=== PATIENT | female | born 1975 | race Caucasian/White ===

== ENCOUNTER 2023-06-20 16:01 | Observation (INO) | payer SELFPAY ==
[2023-06-20 16:13] VITALS: BP 132/84; PULSE 99; RESP 14; TEMP 36.7; O2SAT 99; BMI 37.2
--- NOTE | 2023-06-20 17:45 | CTR_ITS ---
PROCEDURE INFORMATION: Exam: CT Abdomen And Pelvis Without Contrast Exam date and time: 06/20/2023 6:34 PM Age: 47 years old Clinical indication: Abdominal pain; Flank; Right; Additional info: Right flank pain TECHNIQUE: Imaging protocol: Computed tomography of the abdomen and pelvis without contrast. Axial, coronal and sagittal reformatted images were created and reviewed. Radiation optimization: All CT scans at this facility use at least one of these dose optimization techniques: automated exposure control; mA and/or kV adjustment per patient size (includes targeted exams where dose is matched to clinical indication); or iterative reconstruction. COMPARISON: No relevant prior studies available. RADIATION DOSE METRICS: Total DLP (mGy-cm): 889 FINDINGS: Lungs: Linear stranding and groundglass at the lung bases, likely due to atelectasis and/or scarring. Diaphragm: Small hiatal hernia. Elevated right hemidiaphragm. Liver: Mild hepatomegaly. Coarse calcified granuloma in the right hepatic lobe. Gallbladder and bile ducts: No radiodense gallstones. No biliary ductal dilatation. Pancreas: Unremarkable. Spleen: Unremarkable. Adrenal glands: Normal. No mass. Kidneys and ureters: Nonobstructing left renal calculi. No hydronephrosis. Stomach and bowel: Colonic diverticulosis without evidence of diverticulitis. No obstruction. No bowel wall thickening. No pneumatosis. Appendix: Dilated, thickwalled appendix with moderate periappendiceal inflammatory change. Intraperitoneal space: Trace nonspecific free pelvic fluid, likely physiologic and/or reactive. No organized fluid collection. No free air. Vasculature: Mild atherosclerotic disease. No aneurysm. Lymph nodes: Small mesenteric lymph nodes, nonspecific in appearance. No pathologically enlarged lymph nodes. Urinary bladder: Unremarkable as visualized. Reproductive: Dominant right ovarian follicle. Bones/joints: No acute osseous abnormality. Osteopenia. Degenerative changes. Soft tissues: Unremarkable. CT/CT kidney stone [id number] IMPRESSION: 1. Acute appendicitis, as described above. Early perforation cannot be excluded. No abscess, obstruction or free air. 2. Additional findings, as above.
--- NOTE | 2023-06-20 17:47 | W.ED.FEMALGU ---
HPI - Female Genitourinary General: Chief complaint: Urogenital-Female Stated complaint: ABD/ leg pain Time Seen by Provider: 06/20/23 17:22 Source: patient Mode of arrival: ambulatory Limitations: no limitations History of Present Illness: 47yo female presents with flank pain that has been ongoing for the past 4 days, but worsened in the past 2 days. Patient states her pain initially started around her known hernia area in the abdomen, then moved to the flank area. States that it is worse on the right side. Patient reports she has had a history of kidney stones. Patient has been to her doctor twice in the past 2 days for this pain and was sent to the emergency department today for CT scan. Patient states that she did have an x-ray completed at her doctor's office and they saw something on the right kidney, but could not tell if it was a stone or not. Patient reports that she has had nausea, but is currently taking promethazine for it. Patient denies fever, vomiting, dysuria, difficulty voiding, any other concern at this time. Associated symptoms: Reports nausea Review of Systems Const: Denies: fever(s) Card: Denies: chest pain Resp: Denies: dyspnea GI: Reports: nausea; Denies: vomiting : Reports: flank pain (right > left) Physical Exam Const: COMMON NORMALS: no acute distress, patient oriented x3 and alert GENERAL APPEARANCE: cooperative ORIENTATION/CONSCIOUSNESS: Yes awake HENMT: COMMON NORMALS: normocephalic, external ears normal and Normal external nose present HEAD & SCALP: normocephalic NOSE: Normal external nose present EXTERNAL EAR: Yes external ears normal Neck/C-Spine: COMMON NORMALS: full ROM Resp: COMMON NORMALS: normal respiratory effort and clear to auscultation bilaterally EFFORT & INSPECTION: Yes able to speak in complete sentences AUSCULTATION: clear to auscultation bilaterally Cardio: COMMON NORMALS: regular rate and regular rhythm RATE: regular rate RHYTHM: regular rhythm GI: COMMON NORMALS: Soft to palpation PALPATION: Yes Soft to palpation : BLADDER/KIDNEY EXAM: Yes CVA tenderness (mild) Back/Pelvis: GENERAL BACK: Yes CVA tenderness (mild) CVA tenderness: right Extremity: NARRATIVE EXTREMITY EXAM: MAEW Neuro: COMMON NORMALS: patient oriented x3 SENSORIUM/ORIENTATION: Yes alert Psych: COMMON NORMALS: cooperative ATTITUDE: Yes calm Course ED course: 1906: Received call from radiologist about appendicitis with inflammation and possible early perforation. Reevaluation(s): Reevaluation #1: Discussed CT findings with patient. Advised that we would contact the surgeon and likely be admitted for surgery. Time: 19:10 Consultations: Consultation #1: Dr Stewart, Gen Surg. Discussed HPI and CT findings of appendicitis. Advised [id number] Zosyn as well as pain medications and admission for surgery. Time: 19:18 Vital Signs: Vital signs: Vital Signs Temperature 98.1 F 06/20/23 16:13 Pulse Rate 99 06/20/23 16:13 Respiratory Rate 14 06/20/23 16:13 Blood Pressure 132/84 06/20/23 16:13 Pulse Oximetry 99 06/20/23 16:13 Oxygen Delivery Me thod Room Air 06/20/23 16:13 MDM - Female Medical Decision Making 47yo female here from her primary care office for a CT scan to evaluate for possible kidney stone. Patient states that her symptoms started about 3 days ago but has worsened in the past 2 days. Patient did have an x-ray completed at her primary care office where they could not be sure if there was something on the right kidney are not. Patient has had a lot of nausea and is currently taking promethazine for it. Patient does have a history of kidney stones. She denies fever, chills, body aches, dysuria, difficulty passing urine, any other concern at this time. Patient is nontoxic in appearance. Vital signs are stable. White blood cell count noted to be elevated at 14.66. CMP with a glucose of 124, otherwise unremarkable. UA with 1+ protein trace leukocytes, but contaminated with epithelial cells. CT abdomen pelvis does indicate acute appendicitis early perforation cannot be excluded. Discussed these findings with patient. Advised that she would need to be admitted to the hospital for appendectomy. Patient does state understanding. Consulted Dr. Stewart, general surgery. He recommended Zosyn [id number] with pain medications and he will take her to surgery. Patient is agreeable with plan of care and admission to the hospital. Differential Diagnosis Likely abdominal pain, acute appendicitis, calculus of kidney and constipation Medical Records I reviewed the patient's medical records. Lab Data I reviewed the patient's lab results. 06/20/23 18:04 06/20/23 18:04 Radiology Impressions Abdomen/Pelvis CT 06/20/23 17:45 IMPRESSION: 1. Acute appendicitis, as described above. Early perforation cannot be excluded. No abscess, obstruction or free air. 2. Additional findings, as above. ADDENDUM: 06/20/231909 ADDENDUM: THIS REPORT CONTAINS FINDINGS THAT MAY BE CRITICAL TO PATIENT CARE. The findings were verbally communicated via telephone conference with PRIYA MARIANO at 7:07 PM SHOE LAY OUT PLANNER on 06/20/2023. The findings were acknowledged and understood. Laboratory Results WBC 14.66 10^3/uL (3.29-11.43) H 06/20/23 18:04 RBC 4.80 10^6/uL (3.85-5.65) 06/20/23 18:04 Hgb 13.40 g/dL (11.27-16.99) 06/20/23 18:04 Hct 40.0 % (36-47) 06/20/23 18:04 MCV 83.3 fl (85-98) L 06/20/23 18:04 MCH 27.9 pg (27-33) 06/20/23 18:04 MCHC 33.5 g/dL (30-55) 06/20/23 18:04 RDW 14.2 % (12.1-15.1) 06/20/23 18:04 Plt Count 253 10^3/cmm (157-399) 06/20/23 18:04 MPV 10.6 fL (7.4-10.4) H 06/20/23 18:04 Neut % (Auto) 78.4 % 06/20/23 18:04 Lymph % (Auto) 14.4 % 06/20/23 18:04 [place] % (Auto) 5.2 % 06/20/23 18:04 Eos % (Auto) 1.1 % 06/20/23 18:04 Baso % (Auto) 0.4 % 06/20/23 18:04 Neut # (Auto) 11.49 10^3/uL (1.8-7.7) H 06/20/23 18:04 Lymph # (Auto) 2.1 10^3/uL (0.8-4.8) 06/20/23 18:04 [place] # (Auto) 0.8 10^3/uL (0.2-0.9) 06/20/23 18:04 Eos # (Auto) 0.2 10^3/uL (0.0-0.8) 06/20/23 18:04 Baso # (Auto) 0.1 10^3/uL (0.0-0.1) 06/20/23 18:04 Nucleated RBC % (auto) 0 % 06/20/23 18:04 Nucleated RBCs # 0.0 /100WBC 06/20/23 18:04 Sodium 140 mmol/L (136-145) 06/20/23 18:04 Potassium 3.5 mmol/L (3.5-5.1) 06/20/23 18:04 Chloride 102 mmol/L (98-107) 06/20/23 18:04 Carbon Dioxide 28 mmol/L (22-29) 06/20/23 18:04 Anion Gap 13.5 (5-19) 06/20/23 18:04 BUN 13 mg/dL (6-20) 06/20/23 18:04 Creatinine 0.7 mg/dL (0.5-0.9) 06/20/23 18:04 GFR Calculation 88.9 mL/min (90-130) L 06/20/23 18:04 Glucose 124 mg/dL (65-115) H 06/20/23 18:04 Calculated Osmolality 292 mOsm/kg (285-295) 06/20/23 18:04 Calcium 9.2 mg/dL (8.5-10.5) 06/20/23 18:04 Total Bilirubin 0.4 mg/dL (0.15-1.2) 06/20/23 18:04 AST 10 U/L (0-32) 06/20/23 18:04 ALT 12 U/L (0-33) 06/20/23 18:04 Alkaline Phosphatase 47 U/L (35-105) 06/20/23 18:04 Total Protein 6.9 g/dL (6.6-8.7) 06/20/23 18:04 Albumin 4.0 g/dL (3.5-5.2) 06/20/23 18:04 Globulin 2.9 g/dL (1.3-4.6) 06/20/23 18:04 Urine Color Dark yellow (Yellow) 06/20/23 18:04 Urine Appearance Sl cloudy (CLEAR) A 06/20/23 18:04 Urine pH 6.5 (5-7) 06/20/23 18:04 Ur Specific [place] 1.020 (1.005-1.030) 06/20/23 18:04 Urine Protein 1+ (Negative) H 06/20/23 18:04 Urine Glucose (UA) Norm (Normal) 06/20/23 18:04 Urine Ketones 1+ (Negative) H 06/20/23 18:04 Urine Blood 2+ (Negative) H 06/20/23 18:04 Urine Nitrate Negative (Negative) 06/20/23 18:04 Urine Bilirubin 1+ (Negative) H 06/20/23 18:04 Urine Urobilinogen 1 mg/dL (Negative) H 06/20/23 18:04 Ur Leukocyte Esterase Trace (Negative) H 06/20/23 18:04 Urine RBC 15-25 /hpf (0-2) H 06/20/23 18:04 Urine WBC 0-4 /hpf (0-5) H 06/20/23 18:04 Ur Squamous Epith Cells 15-25 /hpf (0-5) H 06/20/23 18:04 Calcium Oxalate Crystal 25-40 /hpf H 06/20/23 18:04 Amorphous Sediment Not Reportable 06/20/23 18:04 Urine Bacteria 2+ /hpf (NONE) H 06/20/23 18:04 Urine Mucus 3+ /hpf 06/20/23 18:04 All radiology interpretation(s) finalized by discharge Discharge Plan Discharge Condition: Stable Coding Level of Care Code ED Gum Rolling Machine Operator for Chacha Mariscal
[2023-06-20 18:16] LABS: Basophils # 0.1 10^3/uL (0.0-0.1); Basophils % 0.4 %; Eosinophils # 0.2 10^3/uL (0.0-0.8); Eosinophils % 1.1 %; Lymphocytes # 2.1 10^3/uL (0.8-4.8); Lymphocytes % 14.4 %; Mean Corpuscular HGB Conc 33.5 g/dL (30-55); Mean Corpuscular Hemoglobin 27.9 pg (27-33); Mean Corpuscular Volume 83.3 fl (85-98); Mean Platelet Volume 10.6 fL (7.4-10.4); Monocytes # 0.8 10^3/uL (0.2-0.9); Monocytes % 5.2 %; Neutrophils # 11.49 10^3/uL (1.8-7.7); Neutrophils % 78.4 %; Nucleated Red Blood Cells % 0 %; Platelet Count 253 10^3/cmm (157-399); Red Cell Distribution Width 14.2 % (12.1-15.1); White Blood Count 14.66 10^3/uL (3.29-11.43)
[2023-06-20 18:37] LABS: Alanine Aminotransferase 12 U/L (0-33); Alkaline Phosphatase 47 U/L (35-105); Anion Gap 13.5 (5-19); Aspartate Amino Transferase 10 U/L (0-32); Blood Urea Nitrogen 13 mg/dL (6-20); Calcium 9.2 mg/dL (8.5-10.5); Carbon Dioxide 28 mmol/L (22-29); Chloride 102 mmol/L (98-107); Globulin 2.9 g/dL (1.3-4.6); Glomerular Filtration Rate 88.9 mL/min (90-130); Glucose 124 mg/dL (65-115); Osmolality Calculated 292 mOsm/kg (285-295); Potassium 3.5 mmol/L (3.5-5.1); Sodium 140 mmol/L (136-145); Total Bilirubin 0.4 mg/dL (0.15-1.2); Total Protein 6.9 g/dL (6.6-8.7)
[2023-06-20 19:10] LABS: Add Urine Microscopic? YES; Bilirubin Urine 1+ (Negative); Blood Urine 2+ (Negative); Glucose Urine UA Norm (Normal); Ketones Urine 1+ (Negative); Leukocyte Esterase Urine Trace (Negative); Nitrate Urine Negative (Negative); Protein Urine 1+ (Negative); Urine Color Dark Yellow (Yellow); Urobilinogen Urine 1 mg/dL (Negative); pH Urine 6.5 (5-7)
[2023-06-20 19:11] LABS: Bacteria Urine 2+ /hpf; Calcium Oxalate Crystals Urine 25-40 /hpf; Mucus Urine 3+ /hpf; RBC Urine 15-25 /hpf (0-2); Squamous Epithelial Cell Urine 15-25 /hpf (0-5); WBC Urine 0-4 /hpf (0-5)
[2023-06-20 19:12] LABS: Add Urine Culture? No
--- NOTE | 2023-06-20 20:31 | PC.NURSE ---
video games storywriter provided report and handed off care to Polly MARTIN at 1900
[2023-06-20] MEDS: morphine 4 mg/mL SDV 1 mL IVP (20:46)
[2023-06-20] MEDS: piperacillin-tazobactam 3.375 GM in sodium chloride 0.9% (plus) 50 ML IV (20:46)
[2023-06-20] MEDS: ondansetron 2 mg/ML SDV 2 mL 4 MG IVP (20:46)
[2023-06-20] MEDS: sodium chloride 0.9% 1,000 ML 100 ML IV (20:46)
[2023-06-20 22:02] VITALS: BMI 27.6
[2023-06-20 22:08] VITALS: BP 130/68; PULSE 98; RESP 16; TEMP 37; O2SAT 99
[2023-06-20 23:59] VITALS: BP 121/79; PULSE 76; RESP 17; TEMP 36.8; O2SAT 97
[2023-06-21] VITALS (28 sets, daily range): BP systolic 100–144; BP diastolic 65–84; PULSE 56–77; RESP 11–25; TEMP 36.1–36.8; O2SAT 92–99
[2023-06-21] MEDS: ondansetron 2 mg/ML SDV 2 mL 4 MG IVP ×3 (01:45→14:11)
[2023-06-21] MEDS: HYDROmorphone 1 mg/mL INJ 1 mL IVP ×6 (01:50→22:30)
[2023-06-21] MEDS: sodium chloride 0.9% 1,000 ML 100 ML IV ×3 (04:59→22:30)
[2023-06-21] MEDS: piperacillin-tazobactam 3.375 GM in sodium chloride 0.9% (plus) 50 ML IV ×3 (04:59→22:29)
--- NOTE | 2023-06-21 10:28 | P.ANESASSM_ITS ---
Pre-Anesthetic Assessment Height/Weight: Height 1.6 m Weight 80.286 kg Temp Pulse Resp BP Pulse Ox O2 Del Method 97.5 F L 65 16 124/84 96 Room Air 06/21/23 07:48 06/21/23 07:48 06/21/23 08:20 06/21/23 07:48 06/21/23 07:48 06/21/23 07:48 Operation Date: 06/21/23 11:00 Proposed Procedures p Laparoscopic Appendectomy(Not Applicable) - Filipe Stewart, DO Was Beta Liss taken within 24 hours: N/A Was Clonidine taken within 24 hours: N/A Exam alert and oriented x 3 Airway Submandibular: within normal limits Cervical ROM: within normal limits Mallampati: Class II Comments: Comments: Broken teeth upper molars History/ROS No significant history except as noted and No significant complaints CV/HEM Hypertension GI Gastroesophageal Reflux Disease Well controlled GERD; PPI prn only Metabolic Morbid Obesity Anesthetic Plan ASA status: 2 Anesthesia: General Risk of > 500 ml blood loss (7ml/kg in children): No Medications/Allergies Home Medications Medication Instructions Recorded Confirmed Last Taken Type hydrochlorothiazide 25 mg tablet 25 mg PO DAILY 06/21/23 06/21/23 06/19/23 History Allergies Allergy/AdvReac Type Severity Reaction Status Date / Time No Known Allergies Allergy Verified 06/20/23 16:12 Current Medications Generic Name Dose Route Start Last Admin Trade Name Freq PRN Reason Stop Dose Admin Hydromorphone HCl 1 mg 06/20/23 23:57 06/21/23 08:20 Hydromorphone 1 Mg/Ml Inj 1 Ml IVP 1 mg Q3H PRN Administration PAIN Sodium Chloride 1,000 mls @ 100 mls/hr 06/20/23 19:30 06/21/23 04:59 Sodium Chloride 0.9% IV 100 mls/hr .Q10H SAILAJA Administration Piperacillin Sod/Tazobactam 50 mls @ 12.5 mls/hr 06/21/23 05:00 06/21/23 09:04 Sod 3.375 gm/ Sodium Chloride IV Infused Q8H SAILAJA Infusion Protocol Ondansetron HCl 4 mg 06/20/23 23:58 06/21/23 08:20 Ondansetron 2 Mg/Ml Sdv 2 Ml IVP 4 mg Q4H PRN Administration NAUSEA AND VOMITING Data Anesthesia 06/20/23 18:04 06/20/23 18:04 Short CBC 06/20/23 Range/Units 18:04 WBC 14.66 H (3.29-11.43) 10^3/uL Hgb 13.40 (11.27-16.99) g/dL Hct 40.0 (36-47) % MCV 83.3 L (85-98) fl Plt Count 253 (157-399) 10^3/cmm Neut % (Auto) 78.4 % Neut # (Auto) 11.49 H (1.8-7.7) 10^3/uL BMP 06/20/23 18:04 Sodium 140 Potassium 3.5 Chloride 102 Carbon Dioxide 28 BUN 13 Creatinine 0.7 Glucose 124 H Calcium 9.2 Liver Function 06/20/23 Range/Units 18:04 Total Bilirubin 0.4 (0.15-1.2) mg/dL AST 10 (0-32) U/L ALT 12 (0-33) U/L Alkaline Phosphatase 47 (35-105) U/L Albumin 4.0 (3.5-5.2) g/dL Urine 06/20/23 Range/Units 18:04 Urine Color Dark yellow (Yellow) Urine Appearance Sl cloudy A (CLEAR) Urine pH 6.5 (5-7) Ur Specific [place] 1.020 (1.005-1.030) Urine Protein 1+ H (Negative) Urine Glucose (UA) Norm (Normal) Urine Ketones 1+ H (Negative) Urine Nitrate Negative (Negative) Urine Bilirubin 1+ H (Negative) Ur Leukocyte Esterase Trace H (Negative) Urine RBC 15-25 H (0-2) /hpf Urine WBC 0-4 H (0-5) /hpf Cardiac Studies: 2 No Data to Display
--- NOTE | 2023-06-21 10:34 | PC.CHAP ---
Pastoral Care Encounter/Spiritual Assessment Type of Contact [] Declined carbon coating machine operator visit [] Patient/Family/Request visit [] Outpatient visit [] Follow-up visit [] Physician referral [] Code/Alert [X] Routine visit [] Staff referral [] Actively dying [] Patient sleeping [X] Family support [] [] Out of room [] Palliative care [] [] Receiving care in room [] Pre-surgical visit [] Trauma [] Long length of stay [] ICU visit [] Other: Relational/Emotional Strength [X] Patient feels connected with others/family/visitors/staff [] Distress [] Loneliness/isolation [] Abandonment Spirituality of Patient [X] Person of Jo Ann [X] Attends Religion of their [place] [X] Believes in Prayer [X] Reads Bible or Sabianist materials [] There are Spiritual issues to be addressed Tactical/Mobile Watch Officer Interventions [X] Prayer [X] Active listening [] Non-anxious presence [] Spiritual/emotional support [] Crisis/trauma care [] Spiritual counseling [] Bereavement support [] Provided bereavement packet [] Provided Bible/devotional materials [] Provided toy/stuffed animal, coloring book to patient or family member [] Provided Communion [] Anointing/[place] [] Salvation [] Completed spiritual assessment [] Other: Impact on Illness or Injury [] Angry [] Fearful [] Anxious [] Often cries [] Exhaustion [] Unable to work [] Unable to attend lutheran [] Unable to walk/stand [] Unable to read [] Unable to drive [] Unable to eat/drink [] Unable to sleep [] Unable to be with family [] Patient intubated [] Other: Summary Time spent with patient 20 MIN
[2023-06-21] MEDS: sodium chloride 0.9% 1,000 ML 30 ML IV (10:57)
--- NOTE | 2023-06-21 11:33 | P.HP_ITS ---
Providers/Chief Complaint 2 Admitting Physician: Filipe Stewart DO Chief Complaint: ABD/ leg pain History of Present Illness Venus Hahn is a 47 year old female presents to the hospital with a 3-day history of abdominal pain. She reports that her abdominal pain is mostly periumbilical but also in the right lower quadrant. She has had chills at home but no recorded fever. She denies any nausea, vomiting, diarrhea, constipation, hematochezia and/or melena. Her pain is sharp and constant. The pain does not radiate. Palpation makes pain worse. Nothing makes pain better. CT the abdomen pelvis shows acute appendicitis. Review of Systems 2 General: Reports: 10 or more systems reviewed and unremarkable except in HPI and below Medications/Allergies Home Medications Medication Instructions Recorded Confirmed Last Taken Type hydrochlorothiazide 25 mg tablet 25 mg PO DAILY 06/21/23 06/21/23 06/19/23 History Allergies Allergy/AdvReac Type Severity Reaction Status Date / Time No Known Allergies Allergy Verified 06/20/23 16:12 Vitals/I&O/Wt Last Vital Signs Temp 97.8 F 06/21/23 10:31 Pulse 67 06/21/23 10:31 Resp 18 06/21/23 10:31 BP 120/72 06/21/23 10:31 Pulse Ox 95 06/21/23 10:31 O2 Del Method Room Air 06/21/23 10:31 06/20/23 06/21/23 06/21/23 22:59 06:59 14:59 Intake Total 871.667 / 871.667 50 / 50 Balance 871.667 / 871.667 50 / 50 Weight last 48 hrs Weight 177 lb Weight 155 lb 14.4 oz Weight 210 lb Physical Exam 2 Narrative: General : Patient is well developed , no acute distress, oriented x3 Head : Normal cephalic, a-traumatic. Ears : Pinnae and external canal are normal. Hearing is normal. Eyes : PERRLA, Sclera and injection are normal. No conjunctival discharge. Nose : Mucous membranes are without erythema. Throat : buccal mucosa is normal, gums are without significant recession or hypertrophy. Lungs : Equal chest rise bilaterally, no use of accessory muscles, trachea is midline. Cor : Rate and rhythm are normal. Abdomen : Soft, ND, tender to palpation right lower quadrant, reducible umbilical hernia, no guarding rebound or masses, negative Rovsing's Extremities : No edema, no cyanosis or clubbing, dorsalis pedis pulses are present bilaterally, non-tender to palpation of calves. Upper extremities are normal bilaterally. Back : non-tender to palpation, no CVA tenderness. Neuro : CN II - XII intact, Upper and lower extremities have equal and full strength Data 06/20/23 18:04 06/20/23 18:04 A&P Assessment and plan (1) Acute appendicitis: (2) Umbilical hernia: Plan Laparoscopic Appendectomy The risks and benefits of the procedure, including but not limited to, bleeding, infection, scar, numbness, pain, damage to surrounding structures, conversion to an open procedure, were explained to the patient. He is understanding of the risks and wishes to proceed. Attestations 2 Medical Necessity Statement*: Patient requires at least 1 night in the hospital for IV antibiotics following laparoscopic appendectomy Coding Level of Care Code 37084 Diagnoses Acute appendicitis K35.80 Umbilical hernia K42.9
[2023-06-21] MEDS: lidocaine-epi 2% 20 mL INJ INJECTION (12:04)
--- NOTE | 2023-06-21 12:37 | PM.OP ---
Operative Report Date of procedure: June 21, 2023 Pre-op diagnosis: Acute appendicitis Umbilical hernia Post-op diagnosis: same Procedure done: Laparoscopic appendectomy Implants: None Specimens removed/disposition: Appendix Surgeon: Filipe Stewart DO Anesthesia: General Estimated blood loss (mL): 5 Complications: None apparent Brief History: This a very pleasant 47-year-old female presented in the hospital with 3-day history abdominal pain. She was diagnosed with acute appendicitis. Laparoscopic appendectomy was indicated. The risk and benefits were explained and documented. Procedure: Patient was wheeled into the operative room and placed on the OR table in a supine position. Abdomen was inspected prepped and draped in usual sterile fashion. Time-out was performed and all present were in agreement. A 15 blade scalp was used to make a stab incision in the left upper quadrant and intra-abdominal insufflation was achieved using a Veress needle. Show large umbilical hernia that was difficult to entirely reduce. Due to this I could not go through the umbilicus. I put a 5 mm trocar through the left upper quadrant incision using [place]. After localizing the tissue incisions were made and a 12 millimeter trocar was placed infraumbilically as well as a 5mm in the right lower quadrant and a 5 mm in the left lower quadrant . The appendix was identified and was retrocecal and inflamed. There was no perforation.. I used the LigaSure to ligate the mesoappendix at the base. I then used 2 PDS endo-loops to snare the base of the appendix. I then used the Voyant to ligate the appendix distally. The appendix was removed from the abdomen using an Endo-Catch bag through the umbilical incision. I examined the abdomen and no further pathology was identified. Hemostasis was noted. I then closed the umbilical site with a Troy-Lidya and 0 Vicryl suture in a figure of 8 fashion. All ports removed. Skin was washed and dried. Incisions were closed with 4 O Vicryl in a subcuticular interrupted fashion. Skin glue was applied. Patient tolerated the procedure well.
[2023-06-21] MEDS: hydroCHLOROthiazide 25 mg Tablet PO (14:10)
--- NOTE | 2023-06-21 19:24 | ANE.PACU2 ---
Inpatient post-anesthesia follow up: Airway intact: Yes Vital signs: Temperature 98 F Pulse Rate 67 Respiratory Rate 16 Blood Pressure 111/75 Pulse Oximetry 96 Oxygen Delivery Me thod Room Air Oxygen Flow Rate 8 Fraction of Inspir ed Oxygen Hydration adequate: Yes Nausea and vomiting: No Pain level: 2 Mental status: Baseline
[2023-06-22] VITALS (7 sets, daily range): BP systolic 127–136; BP diastolic 72–74; PULSE 61–79; RESP 16–18; TEMP 36.4–36.8; O2SAT 94–96
[2023-06-22] MEDS: HYDROmorphone 1 mg/mL INJ 1 mL IVP ×3 (02:19→10:42)
[2023-06-22] MEDS: piperacillin-tazobactam 3.375 GM in sodium chloride 0.9% (plus) 50 ML IV (05:40)
[2023-06-22] MEDS: ondansetron 2 mg/ML SDV 2 mL 4 MG IVP (05:40)
--- NOTE | 2023-06-22 09:16 | P.DS_ITS ---
Discharge Providers Date of Admission: 06/20/23 19:23 Date of Discharge: June 22, 2023 Attending Provider at Admission: Filipe Stewart DO Attending Provider at Discharge: Filipe Stewart DO Diagnoses at Discharge Discharge Diagnosis (1) Acute appendicitis: Status: Acute (2) Umbilical hernia: Status: Acute Reason for Visit Reason for Visit: ABD/ leg pain Hospital Course Hospital Course This very pleasant 47-year-old female who presented to the hospital with abdominal pain. She was diagnosed with acute appendicitis. She underwent laparoscopic appendectomy. She did well postoperatively and was discharged home in good condition the next day. Notably, she had a fairly large umbilical hernia prior to surgery. Physical Exam Narrative: General : Patient is well developed , no acute distress, oriented x3 Head : Normal cephalic, a-traumatic. Ears : Pinnae and external canal are normal. Hearing is normal. Eyes : PERRLA, Sclera and injection are normal. No conjunctival discharge. Nose : Mucous membranes are without erythema. Throat : buccal mucosa is normal, gums are without significant recession or hypertrophy. Lungs : Equal chest rise bilaterally, no use of accessory muscles, trachea is midline. Cor : Rate and rhythm are normal. Abdomen : Soft, ND, appropriately tender, no g/r/m Extremities : No edema, no cyanosis or clubbing, dorsalis pedis pulses are present bilaterally, non-tender to palpation of calves. Upper extremities are normal bilaterally. Back : non-tender to palpation, no CVA tenderness. Neuro : CN II - XII intact, Upper and lower extremities have equal and full strength Discharge Data Studies Completed and Pending Completed Studies During Hospitalization Category Date Time Status CT abdomen renal stone [CT kidney stone 41330] Stat Cat Scan 06/20/23 17:45 Completed Pending at discharge Category Date Time Status Pathology: Surgical [PTH] Routine Pth 06/21/23 12:31 Received Radiology Impressions Abdomen/Pelvis CT 06/20/23 17:45 IMPRESSION: 1. Acute appendicitis, as described above. Early perforation cannot be excluded. No abscess, obstruction or free air. 2. Additional findings, as above. ADDENDUM: 06/20/231909 ADDENDUM: THIS REPORT CONTAINS FINDINGS THAT MAY BE CRITICAL TO PATIENT CARE. The findings were verbally communicated via telephone conference with PRIYA MARIANO at 7:07 PM [employer] on 06/20/2023. The findings were acknowledged and understood. Laboratory Results WBC 14.66 10^3/uL (3.29-11.43) H 06/20/23 18:04 RBC 4.80 10^6/uL (3.85-5.65) 06/20/23 18:04 Hgb 13.40 g/dL (11.27-16.99) 06/20/23 18:04 Hct 40.0 % (36-47) 06/20/23 18:04 MCV 83.3 fl (85-98) L 06/20/23 18:04 MCH 27.9 pg (27-33) 06/20/23 18:04 MCHC 33.5 g/dL (30-55) 06/20/23 18:04 RDW 14.2 % (12.1-15.1) 06/20/23 18:04 Plt Count 253 10^3/cmm (157-399) 06/20/23 18:04 MPV 10.6 fL (7.4-10.4) H 06/20/23 18:04 Neut % (Auto) 78.4 % 06/20/23 18:04 Lymph % (Auto) 14.4 % 06/20/23 18:04 [place] % (Auto) 5.2 % 06/20/23 18:04 Eos % (Auto) 1.1 % 06/20/23 18:04 Baso % (Auto) 0.4 % 06/20/23 18:04 Neut # (Auto) 11.49 10^3/uL (1.8-7.7) H 06/20/23 18:04 Lymph # (Auto) 2.1 10^3/uL (0.8-4.8) 06/20/23 18:04 [place] # (Auto) 0.8 10^3/uL (0.2-0.9) 06/20/23 18:04 Eos # (Auto) 0.2 10^3/uL (0.0-0.8) 06/20/23 18:04 Baso # (Auto) 0.1 10^3/uL (0.0-0.1) 06/20/23 18:04 Nucleated RBC % (auto) 0 % 06/20/23 18:04 Nucleated RBCs # 0.0 /100WBC 06/20/23 18:04 Sodium 140 mmol/L (136-145) 06/20/23 18:04 Potassium 3.5 mmol/L (3.5-5.1) 06/20/23 18:04 Chloride 102 mmol/L (98-107) 06/20/23 18:04 Carbon Dioxide 28 mmol/L (22-29) 06/20/23 18:04 Anion Gap 13.5 (5-19) 06/20/23 18:04 BUN 13 mg/dL (6-20) 06/20/23 18:04 Creatinine 0.7 mg/dL (0.5-0.9) 06/20/23 18:04 GFR Calculation 88.9 mL/min (90-130) L 06/20/23 18:04 Glucose 124 mg/dL (65-115) H 06/20/23 18:04 Calculated Osmolality 292 mOsm/kg (285-295) 06/20/23 18:04 Calcium 9.2 mg/dL (8.5-10.5) 06/20/23 18:04 Total Bilirubin 0.4 mg/dL (0.15-1.2) 06/20/23 18:04 AST 10 U/L (0-32) 06/20/23 18:04 ALT 12 U/L (0-33) 06/20/23 18:04 Alkaline Phosphatase 47 U/L (35-105) 06/20/23 18:04 Total Protein 6.9 g/dL (6.6-8.7) 06/20/23 18:04 Albumin 4.0 g/dL (3.5-5.2) 06/20/23 18:04 Globulin 2.9 g/dL (1.3-4.6) 06/20/23 18:04 Urine Color Dark yellow (Yellow) 06/20/23 18:04 Urine Appearance Sl cloudy (CLEAR) A 06/20/23 18:04 Urine pH 6.5 (5-7) 06/20/23 18:04 Ur Specific [place] 1.020 (1.005-1.030) 06/20/23 18:04 Urine Protein 1+ (Negative) H 06/20/23 18:04 Urine Glucose (UA) Norm (Normal) 06/20/23 18:04 Urine Ketones 1+ (Negative) H 06/20/23 18:04 Urine Blood 2+ (Negative) H 06/20/23 18:04 Urine Nitrate Negative (Negative) 06/20/23 18:04 Urine Bilirubin 1+ (Negative) H 06/20/23 18:04 Urine Urobilinogen 1 mg/dL (Negative) H 06/20/23 18:04 Ur Leukocyte Esterase Trace (Negative) H 06/20/23 18:04 Urine RBC 15-25 /hpf (0-2) H 06/20/23 18:04 Urine WBC 0-4 /hpf (0-5) H 06/20/23 18:04 Ur Squamous Epith Cells 15-25 /hpf (0-5) H 06/20/23 18:04 Calcium Oxalate Crystal 25-40 /hpf H 06/20/23 18:04 Amorphous Sediment Not Reportable 06/20/23 18:04 Urine Bacteria 2+ /hpf (NONE) H 06/20/23 18:04 Urine Mucus 3+ /hpf 06/20/23 18:04 Procedures Performed Laparoscopic appendectomy Vitals Last Vital Signs Temp 98.2 F 06/22/23 07:12 Pulse 61 06/22/23 07:12 Resp 16 06/22/23 07:12 BP 127/74 06/22/23 07:12 Pulse Ox 96 06/22/23 07:12 O2 Del Method Room Air 06/22/23 07:12 O2 Flow Rate 8 06/21/23 13:09 Discharge Plan Discharge Patient Disposition: Home Condition: Stable Prescriptions: New hydrocodone-acetaminophen 7.5-325 mg tablet 1 tab PO Q6H PRN (Reason: pain) Qty: 20 0RF Colace 100 mg capsule 100 mg PO BID Qty: 14 0RF fluconazole 150 mg tablet 150 mg PO DAILY Qty: 1 0RF Rx Instructions: administer on day 1 of therapy amoxicillin-pot clavulanate 875-125 mg tablet 1 tab PO BID Qty: 14 0RF Continued hydrochlorothiazide 25 mg tablet 25 mg PO DAILY Discharge Orders: Discharge Order (Routine); Ordered 06/22/23 Ordered By: Filipe Stewart Referrals: Filipe Stewart DO [Physician] - 2 weeks Discharge Diet: Advance as tolerated Discharge Activity: Resume usual activity Patient Instructions: Opioid Safety, Post Anesthesia Care Activity Restrictions/Additional Instructions: Do not soak incisions underwater for 2 weeks. Shower daily. Discharge Attestations Time Spent in Discharge Care*: less than 30 min Quality Metrics Clinical Quality Measures [ No reported AMI, CVA or VTE this stay] Coding Level of Care Code Acute Code for Chg Fwd Diagnoses Acute appendicitis K35.80 Umbilical hernia K42.9
[2023-06-22] MEDS: hydroCHLOROthiazide 25 mg Tablet PO (10:40)
[2023-06-22 12:09] LABS: Glucose Point of Care 126 mg/dL (70-110)
== END 2023-06-22 12:01 | disposition home or self-care (01) ==
LOC: ER 19:21 → MEDSURG 20:33
PROVIDERS: Admitting Provider Surgery; Emergency Provider Nurse Practitioner; Visit Provider Surgery
PROC: 0DTJ4ZZ Resection of Appendix, Percutaneous Endoscopic Approach (ICD-10-PCS; CPT 44970; principal; 2023-06-21 11:00)
DX: K35.80 Unspecified acute appendicitis (principal); K42.9 Umbilical hernia without obstruction or gangrene; I10 Essential (primary) hypertension; K21.9 Gastro-esophageal reflux disease without esophagitis; E66.01 Morbid (severe) obesity due to excess calories; Z68.32 Body mass index [BMI] 32.0-32.9, adult
CPT/HCPCS: 44970; 36416; 74176; 80053; 81001; 82962; 85025; 88304; 96365; 96366; 96375; 96376; 99285; G0378; J0131; J1100; J1170; J1200; J1885; J2250; J2270; J2405; J2543; J2704; J2710; J3010; J3490; J7030